=== PATIENT | male | born 1955 | race Hispanic/Latino ===

== ENCOUNTER → 2017-05-10 | Outpatient (CLI) | payer OTHER ==
[~2017-05-10] MED LIST: LAMO100T13 PO; LAMO25TA8 PO; LEVE750T10 PO; ZONI100C6 PO
== END | disposition home or self-care (01) ==
LOC: RAH 08:32
PROVIDERS: ATTEND Internal Medicine Cardiovascular Disease
DX: I20.9 Angina pectoris, unspecified (principal)
CPT/HCPCS: 78452; 93017; A9500 ×2

== ENCOUNTER 2019-01-28 13:00 | Emergency (ER) | payer OTHER ==
[~2019-01-28 13:00] MED LIST changes: -LAMO100T13 PO; +LAMO100T16 PO; -LAMO25TA8 PO; +LAMO25TA9 PO
[2019-01-28] MEDS ORDERED: KETOROLAC TROMETHAMINE 60 MG/2 ML VIAL ONE (15:38)
== END 2019-01-28 17:03 | disposition home or self-care (01) ==
LOC: EDH 13:00
DX: S83.91XA Sprain of unspecified site of right knee, initial encounter (principal); S76.011A Strain of muscle, fascia and tendon of right hip, initial encounter; W18.39XA Other fall on same level, initial encounter; Y93.89 Activity, other specified; Y92.89 Other specified places as the place of occurrence of the external cause; Y99.8 Other external cause status
CPT/HCPCS: 73521; 73562; 96372; 99283; J1885

== ENCOUNTER 2019-02-28 17:05 | Emergency (ER) | payer OTHER ==
[2019-02-28] MEDS ORDERED: ONDANSETRON HCL 4 MG/2 ML VIAL ONE (17:53)
[2019-02-28] MEDS ORDERED: KETOROLAC TROMETHAMINE 30MG/ML ONE (17:53)
[2019-02-28] MEDS ORDERED: SODIUM CHLORIDE 0.9% 1000ML 1,000 ML IV ONE (17:53)
[2019-02-28 17:57] LABS: APPEARANCE,URINE Clear (CLEAR); BILIRUBIN,URINE Negative (NEGATIVE); COLOR,URINE Yellow (YELLOW); GLUCOSE, URINE (UA) Negative (NEGATIVE); KETONES,URINE Negative (NEGATIVE); LEUKOCYTE ESTERASE ,URINE Negative (NEGATIVE); NITRATE,URINE Negative (NEGATIVE); OCCULT BLOOD,URINE Negative (NEGATIVE); PH,URINE 5.5 (5.0-8.0); PROTEIN,URINE Negative (NEGATIVE)
[2019-02-28 18:04] LABS: POTASSIUM 3.6 mmol/L (3.5-5.1)
[2019-02-28 18:09] LABS: ALBUMIN 3.8 g/dL (3.5-5.0); BILIRUBIN,TOTAL 0.4 mg/dL (0.2-1.0); TOTAL PROTEIN, SERUM 7.1 g/dL (6.0-8.3)
[2019-02-28 18:12] LABS: BASOPHILS % (AUTO) 0.4 % (0.0-5.0); EOSINOPHILS % (AUTO) 1.1 % (0.0-8.0); HEMATOCRIT 41.2 % (42-54); LYMPHOCYTES % (AUTO) 18.9 % (21.0-51.0); MEAN CORPUSCULAR HEMOGLOBIN 31.1 pg (27.0-33.0); MEAN CORPUSCULAR HGB CONC 34.4 g/dL (32.0-36.0); MEAN CORPUSCULAR VOLUME 90.4 fL (79-99); MONOCYTES % (AUTO) 7.1 % (3.0-13.0); NEUTROPHILS % (AUTO) 72.5 % (40.0-77.0); PLATELET COUNT (AUTO) 195 K/uL (130-400); RED BLOOD CELL COUNT(AUTO) 4.55 MIL/uL (4.50-6.20); WHITE BLOOD COUNT (AUTO) 8.9 K/uL (4.8-10.8)
[2019-02-28] MEDS ORDERED: ZOSYN 3.375GM+NS 50ML 50 ML IV ONE (18:13)
== END 2019-02-28 20:24 | disposition home or self-care (01) ==
LOC: EDH 17:05
DX: K57.92 Diverticulitis of intestine, part unspecified, without perforation or abscess without bleeding (principal); G40.909 Epilepsy, unspecified, not intractable, without status epilepticus; Z90.49 Acquired absence of other specified parts of digestive tract
CPT/HCPCS: 36415; 74176; 80053; 81003; 83690; 85025; 96365; 96366; 96375; 99284; J1885; J2405; J2543; J7030

== ENCOUNTER 2019-04-29 18:46 | Emergency (ER) | payer OTHER ==
[~2019-04-29 18:46] MED LIST changes: +ZONI100C19 PO; -ZONI100C6 PO
[2019-04-29 19:27] LABS: BASOPHILS % (AUTO) 0.5 % (0.0-5.0); EOSINOPHILS % (AUTO) 0.8 % (0.0-8.0); HEMATOCRIT 39.2 % (42-54); LYMPHOCYTES % (AUTO) 18.5 % (21.0-51.0); MEAN CORPUSCULAR HEMOGLOBIN 30.5 pg (27.0-33.0); MEAN CORPUSCULAR HGB CONC 34.2 g/dL (32.0-36.0); MEAN CORPUSCULAR VOLUME 89.3 fL (79-99); MONOCYTES % (AUTO) 10.8 % (3.0-13.0); PLATELET COUNT (AUTO) 148 K/uL (130-400); RED BLOOD CELL COUNT(AUTO) 4.39 MIL/uL (4.50-6.20); RED CELL DISTRIBUTION WIDTH 12.2 % (11.0-15.5); WHITE BLOOD COUNT (AUTO) 8.3 K/uL (4.8-10.8)
[2019-04-29] MEDS ORDERED: ONDANSETRON HCL 4 MG/2 ML VIAL ONE (19:32)
[2019-04-29] MEDS ORDERED: SODIUM CHLORIDE 0.9% 1000ML 1,000 ML IV ONE (19:32)
[2019-04-29] MEDS ORDERED: MORPHINE SULFATE 4 MG/1ML SYG ONE (19:32)
[2019-04-29 19:36] LABS: POTASSIUM 3.9 mmol/L (3.5-5.1)
[2019-04-29 19:45] LABS: ALBUMIN 3.3 g/dL (3.5-5.0); BILIRUBIN,TOTAL 0.5 mg/dL (0.2-1.0); TOTAL PROTEIN, SERUM 6.9 g/dL (6.0-8.3)
[2019-04-29] MEDS ORDERED: IOHEXOL-350 75 ML VIAL IV ONE (19:58)
[2019-04-29] MEDS ORDERED: METRONIDAZOLE 500 MG TABLET ONE (20:47)
[2019-04-29] MEDS ORDERED: LEVOFLOXACIN 500 MG TABLET ONE (20:58)
== END 2019-04-29 22:05 | disposition home or self-care (01) ==
LOC: EDH 18:46
DX: K57.92 Diverticulitis of intestine, part unspecified, without perforation or abscess without bleeding (principal); R56.9 Unspecified convulsions; Z90.49 Acquired absence of other specified parts of digestive tract
CPT/HCPCS: 36415; 74177; 80053; 83690; 85025; 96374; 96375; 99284; J2270; J2405; J7030; Q9967

== ENCOUNTER → 2020-09-12 | Outpatient (CLI) | payer MEDICARE | END | disposition home or self-care (01) | LOC: RAH 11:13 | PROVIDERS: ATTEND Internal Medicine Gastroenterology | DX: R14.0 Abdominal distension (gaseous) (principal) | CPT/HCPCS: 78264; A9541 ==

== ENCOUNTER → 2021-07-13 | Outpatient (CLI) | payer MEDICARE ==
[~2021-07-13] MED LIST changes: +ACET-2247 PO; +AEC81 PO; +ATOR10 PO; +CHOL100046 PO; +FERR324T10 PO; +HYDR-4060 PO; +LAMO200T10 PO; +LINA72CA PO; +MULTIVITAMIN MENS PO; +PANT40TA54 PO; +TAMS-1 PO; +VITAMIN D COMPLEX PO; +ZINC50TA71 PO; -ZONI100C19 PO; +ZONI100C87 PO
[2021-07-13 12:32] LABS: EOSINOPHILS % (AUTO) 4.5 % (0.0-8.0); HEMATOCRIT 41.4 % (42-54); LYMPHOCYTES % (AUTO) 29.1 % (21.0-51.0); MEAN CORPUSCULAR HEMOGLOBIN 31.5 pg (27.0-33.0); MEAN CORPUSCULAR HGB CONC 34.5 g/dL (32.0-36.0); MEAN CORPUSCULAR VOLUME 91.2 fL (79-99); MONOCYTES % (AUTO) 10.3 % (3.0-13.0); NEUTROPHILS % (AUTO) 54.4 % (40.0-77.0); PLATELET COUNT (AUTO) 182 K/uL (130-400); RED BLOOD CELL COUNT(AUTO) 4.54 MIL/uL (4.50-6.20); RED CELL DISTRIBUTION WIDTH 12.4 % (11.0-15.5); WHITE BLOOD COUNT (AUTO) 5.8 K/uL (4.8-10.8)
[2021-07-13 12:50] LABS: ALBUMIN 3.8 g/dL (3.5-5.0); BILIRUBIN,TOTAL 0.5 mg/dL (0.2-1.0); CREATININE 1.2 mg/dL (0.5-1.5); POTASSIUM 4.2 mmol/L (3.5-5.1); TOTAL PROTEIN, SERUM 6.5 g/dL (6.0-8.3)
== END | disposition home or self-care (01) ==
LOC: SHCH 09:05
PROVIDERS: ATTEND Nurse Practitioner Acute Care
DX: E78.2 Mixed hyperlipidemia (principal); R06.02 Shortness of breath
CPT/HCPCS: 36415; 80053; 80061; 85025

== ENCOUNTER → 2021-11-22 | Outpatient (CLI) | payer MEDICARE | END | disposition home or self-care (01) | LOC: RAH 08:40 | PROVIDERS: ATTEND Internal Medicine Cardiovascular Disease | DX: I45.10 Unspecified right bundle-branch block (principal); R06.02 Shortness of breath | CPT/HCPCS: 78452; 96374; 93017; A9500 ×2 ==

== ENCOUNTER 2022-01-19 08:51 | Emergency (ER) | payer MEDICARE ==
[~2022-01-19] VITALS: Ht 167.6 cm; Wt 93.9 kg
[2022-01-19] MEDS ORDERED: KETOROLAC 30MG VIAL (30MG/ML) IVP STA (09:10)
[2022-01-19] MEDS ORDERED: SOLU-MEDROL 125MG VIAL IVP STA (09:10)
[2022-01-19 09:26] LABS: BASOPHILS % (AUTO) 0.2 % (0.0-5.0); EOSINOPHILS % (AUTO) 0.6 % (0.0-8.0); HEMATOCRIT 38.1 % (42-54); MEAN CORPUSCULAR HEMOGLOBIN 31.7 pg (27.0-33.0); MEAN CORPUSCULAR HGB CONC 35.4 g/dL (32.0-36.0); MEAN CORPUSCULAR VOLUME 89.4 fL (79-99); MONOCYTES % (AUTO) 10.1 % (3.0-13.0); NEUTROPHILS % (AUTO) 76.7 % (40.0-77.0); PLATELET COUNT (AUTO) 142 K/uL (130-400); RED BLOOD CELL COUNT(AUTO) 4.26 MIL/uL (4.50-6.20); RED CELL DISTRIBUTION WIDTH 12.2 % (11.0-15.5); WHITE BLOOD COUNT (AUTO) 10.9 K/uL (4.8-10.8)
[2022-01-19 09:52] LABS: ALBUMIN 3.8 g/dL (3.5-5.0); POTASSIUM 3.7 mmol/L (3.5-5.1); TOTAL PROTEIN, SERUM 7.1 g/dL (6.0-8.3)
[2022-01-19] MEDS ORDERED: IOHEXOL-350 50ML VIAL IV ONE (11:40)
[2022-01-19 14:07] VITALS: BP 117/72
[2022-01-19] MEDS ORDERED: PRED10TA23 PO (14:09)
[2022-01-19] MEDS ORDERED: AMOX500C2 PO (14:09)
[2022-01-19] MEDS ORDERED: NAPR375T6 PO (14:09)
== END 2022-01-19 14:23 | disposition home or self-care (01) ==
LOC: EDH 08:51
DX: K11.20 Sialoadenitis, unspecified (principal); G40.909 Epilepsy, unspecified, not intractable, without status epilepticus; Z96.641 Presence of right artificial hip joint; Z79.899 Other long term (current) drug therapy; Z79.82 Long term (current) use of aspirin
CPT/HCPCS: 99285; 96374; 70491; 96375; 80053; 85025; 36415; J2930; J1885; Q9967

== ENCOUNTER 2023-09-28 18:01 | Emergency (ER) | payer MEDICARE ==
[~2023-09-28] VITALS: Ht 167.6 cm; Wt 95.3 kg
[~2023-09-28 18:01] MED LIST changes: +AMOX500C2 PO; +NAPR375T6 PO; +PRED10TA23 PO
[2023-09-28] MEDS: IBUPROFEN 600 MG TABLET PO ONE (18:25)
[2023-09-28 19:30] VITALS: BP 112/70; PULSE 87; RESP 17; O2SAT 96
== END 2023-09-28 20:07 | disposition home or self-care (01) ==
LOC: EDH 18:01
DX: S89.91XA Unspecified injury of right lower leg, initial encounter (principal); M25.551 Pain in right hip; Z79.52 Long term (current) use of systemic steroids; Z96.641 Presence of right artificial hip joint; X58.XXXA Exposure to other specified factors, initial encounter; Y93.89 Activity, other specified; Y92.89 Other specified places as the place of occurrence of the external cause; Y99.8 Other external cause status
CPT/HCPCS: 73503; 73552; 73564